=== PATIENT | male | born 1985 | race Caucasian/White ===

== ENCOUNTER 2019-11-10 13:20 | Emergency (ER) | payer BC ==
[2019-11-10 13:58] VITALS: BP 139/92
--- NOTE | 2019-11-10 16:00 | UC ---
Complaint Male HPI - HPI Summary HPI Summary: 34yo male presenting with request for STI screening. Patient states "something personal happened recently" and he just wants to be safe. Denies having any symptoms. Denies any actual known exposure. States he would also like testing for syphilis, HIV, and hepatitis "in addition to whatever is tested in the urine." - History of Current Complaint Chief Complaint: UCSTDScreening Stated Complaint: PERSONAL Hx Obtained From: Patient Pain Intensity: 0 - Allergies/Home Medications Allergies/Adverse Reactions: Allergies Allergy/AdvReac Type Severity Reaction Status Date / Time No Known Allergies Allergy Verified 11/10/19 13:52 Home Medications: Home Medications NK [No Home Medications Reported] 11/10/19 [History Confirmed 11/10/19] PMH/Surg Hx/FS Hx/Imm Hx Previously Healthy: Yes - Surgical History Surgical History: Yes Surgery Procedure, Year, and Place: Atrial Septal Defect Repair, ~1987, [place] - Family History Known Family History: Positive: Non-Contributory - Social History Alcohol Use: Rare Substance Use Type: None Smoking Status (MU): Heavy Every Day Tobacco Smoker Amount Used/How Often: 1 PPD Length of Time of Smoking/Using Tobacco: Since Age 14 Review of Systems All Other Systems Reviewed And Are Negative: Yes Constitutional: Positive: Negative Skin: Positive: Negative Gastrointestinal: Positive: Negative Genitourinary: Positive: Negative Musculoskeletal: Positive: Negative Physical Exam - Summary Physical Exam Summary: Vital Signs Reviewed: Yes A+Ox3, no distress Eyes: Conjunctiva Clear ENT: Hearing grossly normal neck: supple Respiratory: Positive: No respiratory distress, No accessory muscle use Cardiovascular: skin color reflect adequate perfusion Musculoskeletal Exam: JACOBSON x 4 without difficulty Neurological: Positive: Alert, ambulatory without difficulty Psychological: Positive: age appropriate behavior Skin: Positive: no rash, no ecchymosis Vital Signs: Initial Vital Signs Temp 98.4 F 11/10/19 13:51 Pulse 90 11/10/19 13:51 Resp 16 11/10/19 13:51 BP 139/92 11/10/19 13:51 Pulse Ox 100 11/10/19 13:51 Lab Results 11/10/19 Range/Units 16:24 POC Urine Color Yellow POC Urine Clarity Clear POC Urine pH 7.5 (5-9) POC Ur Specif Neche 1.010 (1.010-1.030) POC Urine Protein Negative (Negative) POC Ur Glucose (UA) Negative (Negative) POC Urine Ketones Negative (Negative) POC Urine Blood Negative (Negative) POC Urine Nitrite Negative (Negative) POC Urine Bilirubin Negative (Negative) POC Urine Urobilinogen 0.2 (Negative) POC U Leukocyte Esteras Negative (Negative) Complaint Male Course/Dx - Course Course Of Treatment: Patient requested and consented to testing for gonorrhea, chlamydia, trichomonas , HIV, syphilis, and hepatitis. Declined herpes testing. Patient also consented to one time treatments of both gonorrhea and chlamydia and received azithromycin and ceftriaxone here. I informed the patient that he would be notified with any results warranting further treatment. Instructed to follow up with pcp if needed. Patient voiced understanding and agreed with treatment plan. - Differential Dx/Diagnosis Provider Diagnosis: Encounter for screening examination for sexually transmitted disease Discharge ED - Sign-Out/Discharge Documenting (check all that apply): Patient Departure All imaging exams completed and their final reports reviewed: No Studies - Discharge Plan Condition: Stable Disposition: HOME Patient Education Materials: Sexually Transmitted Diseases (ED), Safe Sex (ED) Referrals: Yennifer Constantino MD [Primary Care Provider] - If Needed Additional Instructions: As discussed, you received screening for sexually transmitted infections today. You will be notified only with any positive results. Follow up with your primary care provider if you begin experiencing symptoms. - Billing Disposition and Condition Condition: STABLE Disposition: Home
[2019-11-10] MEDS: Lidocaine 1% MPF ** 5 ML VIAL IM ONE (16:46)
[2019-11-10] MEDS: cefTRIAXone VIAL(*) 250 MG VIAL IM ONE (16:46)
[2019-11-10] MEDS: Azithromycin TAB* 250 MG PO ONE (16:51)
[2019-11-11 12:00] LABS: Hepatitis B Surface Antigen Nonreactive (Nonreactive)
[2019-11-11 12:11] LABS: HIV 4th Generation Nonreactive (Nonreactive)
[2019-11-11 12:17] LABS: Hepatitis B Surface Ab Immune (Immune); Hepatitis C Antibody Negative (Negative)
== END 2019-11-10 16:54 | disposition home or self-care (01) ==
LOC: EDBD → UCCORT 13:20
DX: Z11.3 Encounter for screening for infections with a predominantly sexual mode of transmission (principal); F17.210 Nicotine dependence, cigarettes, uncomplicated
CPT/HCPCS: 36415; 81003; 86706; 86780; 86803; 87340; 87389; 87491; 87591; 87661; 96372; 99202; A9270-GY; G0463; J0696